=== PATIENT | female | born 1990 | race Caucasian/White ===

== ENCOUNTER → 2017-06-01 | Outpatient (CLI) | payer BC | LOC: M RAD 07:31 | DX: R10.13 Epigastric pain (principal); R63.4 Abnormal weight loss ==

== ENCOUNTER → 2017-11-05 | Outpatient (CLI) | payer BC | LOC: M RAD 09:50 | DX: R63.4 Abnormal weight loss (principal); R10.13 Epigastric pain; R11.0 Nausea ==

== ENCOUNTER → 2017-12-23 | Outpatient (REF) | payer BC | LOC: M LAB REF 17:25 | DX: E04.1 Nontoxic single thyroid nodule (principal) | CPT/HCPCS: 88173 ==

== ENCOUNTER → 2018-04-13 | Outpatient (CLI) | payer BC ==
[~2018-04-13] MED LIST: ISOVUE-370 76% 100ML VIAL (Q9967) As Ordered ONE
--- NOTE | 2018-05-03 08:00 | REP ---
Clinical: Right upper quadrant pain. Technique: CT angiography of the aorta and branch vessels of the abdomen using 100 ml Isovue 370 intravenous contrast material with multiplanar and 3D volumetric re-formations. Findings: Satisfactory arterial phase enhancement demonstrates normal aorta, celiac axis including common hepatic artery, splenic artery, and left gastric artery as well as a normal superior mesenteric artery, inferior mesenteric artery, solitary bilateral renal arteries, small lumbar arteries and appropriate bifurcation to common iliac arteries followed by normal appearance of the bilateral internal and external iliac arteries. There is no evidence for atherosclerotic disease, stricture, stenosis or other vascular abnormality as cause of the patient's right upper quadrant pain. Liver, spleen, pancreas, gallbladder, bilateral adrenal glands and kidneys are normal in appearance for arterial phase evaluation. The enteric system is without obstruction or obvious acute inflammatory process. Pelvis demonstrates normal bladder and age-appropriate uterus/adnexa. No pelvic fluid or ascites. No obvious adenopathy. No free air. Lung bases are clear. Visualized heart and pericardium normal. Surrounding musculoskeletal structures are intact. Impression: 1. Normal appearance to the aorta and major branch arterial vessels through the abdomen and pelvis. 2. No acute abdominopelvic pathology appreciated. Electronically Signed by Ab Ferguson MD 05/03/2018 07:52 A
== END ==
LOC: M RAD 17:01
PROVIDERS: ATTEND Surgery Vascular Surgery
DX: R10.11 Right upper quadrant pain (principal)
CPT/HCPCS: 74174; Q9967

== ENCOUNTER → 2018-05-09 | Outpatient (CLI) | payer BC ==
[~2018-05-09] MED LIST changes: +HEPARIN 1,000 UNITS/ML 10ML VIAL (FOR RADIOLOGY& DIALYSIS ONLY) As Ordered ONE; +ISOVUE-300 61% 50ML VIAL (Q9967) As Ordered ONE; -ISOVUE-370 76% 100ML VIAL (Q9967) As Ordered ONE; +LIDOCAINE 2% MDV 20 ML VIAL As Ordered ONE; +MIDAZOLAM INJ 2 MG/2 ML VIAL (J2250) As Ordered ONE; +fentaNYL 100 MCG/2 ML INJECTION (J3010) As Ordered ONE
[2018-05-09 07:11] LABS: HEMATOCRIT 37.8 % (36.0-47.0); HEMOGLOBIN 12.4 g/dl (12.0-15.5); MEAN CORPUSCULAR HEMOGLOBIN 29.2 pg (27.0-33.0); MEAN CORPUSCULAR HGB CONC 32.8 g/dl (32.0-36.5); MEAN CORPUSCULAR VOLUME 89.2 fl (80.0-96.0); PLATELET COUNT, AUTOMATED 224 10^3/uL (150-450); RED BLOOD COUNT 4.24 10^6/uL (4.00-5.40); WHITE BLOOD COUNT 7.5 10^3/uL (4.0-10.0)
[2018-05-09 07:36] LABS: BLOOD UREA NITROGEN 7 MG/DL (7-18); CALCIUM LEVEL 8.8 MG/DL (8.5-10.1); CARBON DIOXIDE LEVEL 26 MEQ/L (21-32); CHLORIDE LEVEL 105 MEQ/L (98-107); CREATININE FOR GFR 0.78 MG/DL (0.55-1.30); GLOMERULAR FILTRATION RATE > 60.0 (>60); GLUCOSE, FASTING 95 MG/DL (70-100); POTASSIUM SERUM 3.5 MEQ/L (3.5-5.1); SODIUM LEVEL 140 MEQ/L (136-145)
--- NOTE | 2018-05-11 09:25 | REPIR ---
DATE OF PROCEDURE: 05/09/2018 PREPROCEDURE DIAGNOSIS: Abdominal pain, median arcuate ligament syndrome. POSTPROCEDURE DIAGNOSIS: Abdominal pain, median arcuate ligament syndrome. PROCEDURE: Aortogram with inspiration and expiration in AP and lateral views. SURGEON: Dr. Vic Bosch MERCHANDISE SUPPORT ASSOCIATE: Gladis Wharton and Trinh Ennis. INDICATION: The patient is a 28-year-old female with diffuse abdominal pain who has undergone an extensive workup with no etiology of her abdominal pain ascertained. 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 The patient will undergo an angiogram with possible angioplasty, stent and/or atherectomy. The procedure was described and explained to the patient in detail including drawing of pictures delineating the procedure and the pertinent anatomy. Risks, benefits, and alternative treatment options were discussed with the patient. Alternative treatment options included but were not limited to no intervention. Benefits included but were not limited to possible intervention for the stenosis with resolution of the symptoms. Risks included but were not limited to infection, bleeding, renal failure requiring hemodialysis, possible need for open surgical intervention, cerebrovascular accident, myocardial infarction, pulmonary embolus, deep venous thrombosis (DVT), reaction to prepping and draping materials, reaction to the contrast, reaction to the sedation material, the sedation medication, loss of limb, loss of life, poor outcome, and/or poor result. The patient's questions were answered. The patient acknowledges understanding of these risks, benefits and alternative treatment options and agrees to proceed. No guarantees or promises were made to the patient regarding the procedure or the outcome of the procedure. ANESTHESIA: Local with 20 mL of 2% lidocaine. FLUORO TIME: 0.7 minutes. CONTRAST: 25 mL of Isovue 300 HEPARIN: None. COMPLICATIONS: None. DRAINS: None. SPECIMENS: None. IMPLANTS: None. PROCEDURE: The patient was taken to the angiography suite, placed supine on the angiography room table and prepped and draped in standard surgical fashion. The right common femoral artery was then cannulated with a micropuncture needle after anesthetizing the overlying skin with 2% lidocaine. A micropuncture wire was advanced through the micropuncture needle which was upsized to a micropuncture sheath. A Jigseeson wire was advanced through the micropuncture sheath which was upsized to a 5-[place] Island[place] sheath. An Omniflush catheter was advanced over the Bentson wire and placed in the aorta and aortogram was performed. Aortography was performed in AP and lateral views with full inspiration and full expiration after which the Omniflush catheter was removed over the Bentson wire. The 5-[place] sheath was removed and manual compression applied at the puncture site for hemostasis. Dressings were then applied. The patient tolerated the procedure well. All instrument, sponge, and needle counts were correct at the end of the case. There were no complications. Dr. Bosch was present for and directed the entire case. The patient was transferred to the holding area and subsequently discharged in stable condition. The results of the procedure and the procedure itself were described to the patient in detail and all the patient's questions were answered. RADIOLOGIC SUPERVISION INTERPRETATION: The aortogram in AP and lateral views with full inspiratory and expiratory effort showed the celiac and SMA arteries to be widely patent and normal in full expiration views. When the patient inspired fully and the lateral and AP views were performed, the celiac artery was elongated and stenotic consistent with median arcuate ligament syndrome. The superior mesenteric artery was normal and showed no evidence of stenosis or atherosclerotic arterial occlusive disease in both inspiratory and expiratory views. Manual compression was used to close the arteriotomy in the right common femoral artery.
== END | disposition home or self-care (01) ==
LOC: M IRPRO 06:45
PROVIDERS: ATTEND Surgery Vascular Surgery
DX: I77.4 Celiac artery compression syndrome (principal); R10.9 Unspecified abdominal pain
CPT/HCPCS: 36200; 75625; 80048; 85027; C1769; C1887; C1894; J2250; J3010; Q9967

== ENCOUNTER → 2018-10-14 | Outpatient (CLI) | payer BC ==
--- NOTE | 2018-10-14 11:50 | REP ---
UPPER ABDOMINAL MESENTERIC ARTERIAL DOPPLER ASSESSMENT: HISTORY: Rule out median arcuate ligament compression. The patient is status post surgical release of the median arcuate ligament. For re-evaluation of velocities. Comparison CT angiography April 13, 2018. Comparison is made with angiography from May 09, 2018. Prior sonography study is dated July 08, 2018. SONOGRAPHIC FINDINGS: Peak systolic flow velocity in the abdominal aorta at the level just above the celiac artery origin is normal at 112 cm/s. The origin angle of the celiac artery relative to the aorta is measured at 27.7 degrees and with inspiration and 24.5 degrees in expiration. Previously, there was a more significant change in this ankle between inspiration and expiration. Celiac artery peak systolic flow velocities remain elevated although they are not significantly different between inspiration and expiration today. At inspiration, celiac artery origin PSV is 305 cm/s, EDV 86 cm/s. At expiration these values are 357 cm/s and 124 cm/s respectively. Peak systolic flow velocity in the superior mesenteric artery origin is 223 cm/s which is similar to the prior study. Celiac artery origin vessel size and inspiration is measured at 3.2 mm and at expiration 2.2 mm. There is some post stenotic dilation again seen in the celiac artery to 7.6 mm. IMPRESSION: Celiac artery peak systolic velocities remain elevated. There is less differential in the velocities between inspiration and expiration. There is less change in the angle of celiac artery orientation relative to the aorta between inspiration and expiration. Electronically Signed by Joe Vega MD 10/14/2018 01:04 P
== END ==
LOC: M RAD 07:35
DX: I77.4 Celiac artery compression syndrome (principal)